=== PATIENT | male | born 1980 | race Caucasian/White ===

== ENCOUNTER 2023-05-03 12:35 | Inpatient (IN) ==
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
[2023-05-03] MEDS ORDERED: MoRPHine SULFATE 4 MG/ML 1 ML CARP\\VIAL IV PRN (13:49)
[2023-05-03 14:39] LABS: Basophils # (auto) 0.04 K/uL (0-0.2); Basophils % (auto) 0.3 %; Eosinophils # (auto) 0.19 K/uL (0-0.50); Eosinophils % (auto) 1.3 %; Hematocrit (blood only) 41.1 % (42.0-52.0); Hemoglobin 13.9 g/dl (14.0-18.0); Immature Granulocytes # (auto) 0.07 K/uL (0.01-0.20); Immature Granulocytes % (auto) 0.5 %; Lymphocytes # (auto) 1.56 K/uL (1.2-3.4); Lymphocytes % (auto) 10.6 %; Mean Corpuscular Hemoglobin 30.6 pg (25.0-34.0); Mean Corpuscular Hgb Conc 33.8 g/dL (32.0-36.0); Mean Corpuscular Volume 90.5 fL (80.0-100.0); Mean Platelet Volume 9.7 fL (9.4-12.4); Monocytes # (auto) 1.35 K/uL (0.11-0.59); Monocytes % (auto) 9.2 %; Neutrophils # (auto) 11.52 K/uL (1.40-6.50); Neutrophils % (auto) 78.1 %; Platelet Count 249 K/uL (130-400); RDW Coefficient of Variation 13.1 % (11.5-14.5); RDW Standard Deviation 43.1 fL (36.4-46.3); Red Blood Count 4.54 M/uL (4.70-6.10); White Blood Count 14.73 K/ul (4.8-10.8)
[2023-05-03] MEDS ORDERED: ROPIVACAINE 0.5% 5 MG/ML 30 ML VIAL ONE (14:51)
[2023-05-03] MEDS ORDERED: EPINEPHrine INJ 1 MG/ML AMP ONE (14:52)
[2023-05-03] MEDS ORDERED: DEXAMETHASONE SOD INJ 4 MG/ML VIAL ONE (14:53)
[2023-05-03] MEDS ORDERED: BUPIVACAINE 0.5 % 5 MG/1 ML MPF 30ML VIAL ONE ×2 (14:55→16:40)
[2023-05-03 14:56] LABS: Albumin Globulin Ratio 1.1 (0.9-2); Albumin Level 3.8 gm/dl (3.4-5.0); BUN Creatinine Ratio 9.5 (10-20); Bilirubin,Total 0.7 mg/dl (0.2-1.0); C Reactive Protein 27.23 mg/dl (0-0.5); Calcium 8.6 mg/dl (8.6-10.3); Creatinine Clr Calc Pharmacy 80.5 ml/min; Est GFR (African American) 80.4 ml/min; Est GFR (Non-African American) 69.4 ml/min; Globulin 3.5 gm/dl (2.5-4.0); Potassium 3.5 mmol/L (3.5-5.1); Total Protein 7.3 gm/dl (6.0-8.3)
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
[2023-05-03] MEDS ORDERED: PROPOFOL IV EMULSION 10 MG/ML 20 ML VIAL IV ONE (15:09)
[2023-05-03] MEDS ORDERED: fentaNYL citrate PF 100 MCG/2 ML VIAL ONE (15:10)
[2023-05-03] MEDS ORDERED: MIDAZOLAM HCL 1 MG/ML 2ML VIAL ONE (15:10)
[2023-05-03] MEDS ORDERED: PIPERACILLIN/TAZOBACTAM 4.5 GM in DEXTROSE 5% 100 ML IV ONE (16:51)
[2023-05-03] MEDS ORDERED: PHENYLEPHRINE HCL 10 MG/ML VIAL ONE (17:12)
[2023-05-03] MEDS ORDERED: ONDANSETRON INJ 2 MG/ML 2 ML VIAL ONE (17:22)
[2023-05-03] MEDS ORDERED: LIDOCAINE 2% 2 ML VIAL/AMP(20MG/ML) INFIL ONE (17:23)
[2023-05-03] MEDS ORDERED: fentaNYL citrate PF 100 MCG/2 ML VIAL IV PRN (17:52)
[2023-05-03] MEDS ORDERED: FLUMAZENIL 0.1 MG/1 ML 10 ML VIAL IV PRN (17:52)
[2023-05-03] MEDS ORDERED: PROMETHAZINE HCL 12.5 MG in SODIUM CHLORIDE 0.9% 50 ML IV PRN (17:52)
[2023-05-03] MEDS ORDERED: ePHEDrine sulfate 50 MG/ML AMP IV PRN (17:52)
[2023-05-03] MEDS ORDERED: ATROPINE SULFATE 0.1 MG/ML 10ML SYR IV PRN (17:52)
[2023-05-03] MEDS ORDERED: NALOXONE HCL 0.4 MG/1 ML VIAL/CARP IV PRN ×2 (17:52→18:36)
[2023-05-03] MEDS ORDERED: HYDROmorphone INJ 1 MG/ML SYRINGE IV PRN (17:52)
[2023-05-03] MEDS ORDERED: ONDANSETRON INJ 2 MG/ML 2 ML VIAL IV PRN ×2 (17:52→18:36)
--- NOTE | 2023-05-03 17:52 | Post Operative Brief Note ---
Immediate Post Op Note v1 Date of Surgery May 03, 2023 Pre & Post Diagnosis Operation Date: 05/03/23 12:35 Pre-Op Diagnosis: SEPTIC FLEXER TENOSYNOVITIS, left middle finger Post-Op Diagnosis: SEPTIC FLEXER TENOSYNOVITIS, left middle finger I identified the patient and participated in the time-out.: Yes Procedure Operation Date: 05/03/23 12:35 Actual Procedures p Left Middle Finger Irrigation and Debridement Septic Flexor Tenosynovitis(Left) - Uziel De Los Santos MD Surgeon Uziel De Los Santos MD Transportation Job Titles Sara Hernández PA-C Estimated Blood Loss 3 Findings Consistent with Post-Op Diagnosis Serous fluid consistent with infection in the flexor tendon sheath. Desquamation of the skin seen dorsally. No evidence of focal abscess
--- NOTE | 2023-05-03 18:28 | Anesthesiology Progress Note ---
Date of Service May 03, 2023 Anesthesia Post Procedure Vital Signs Vital Signs: Temp Pulse Pulse Resp BP BP Pulse Ox 05/03/23 18:20 104 H 22 123/73 96 05/03/23 18:10 103 H 21 108/73 95 05/03/23 18:03 36.1 C L 104 H 20 115/77 100 05/03/23 15:06 37.8 C H 117 H 20 118/77 97 05/03/23 13:47 05/03/23 13:20 37.1 C 117 H 16 120/79 97 05/03/23 13:18 37.1 C 117 H 16 120/79 98 Pulse Ox O2 Del Method O2 Del Method O2 Flow Rate 05/03/23 18:20 Room Air 05/03/23 18:10 Room Air 05/03/23 18:03 Oxymask 6 05/03/23 15:06 Room Air 05/03/23 13:47 97 Room Air 05/03/23 13:20 Room Air 05/03/23 13:18 Room Air Pain Intensity Left Hand: Pain Intensity: 8 Transfer of Care Handoff Completed per policy Notes Mental Status: alert / awake / arousable Patient Amnestic to Procedure: Yes Nausea / Vomiting: adequately controlled Pain: adequately controlled Airway Patency, RR, SpO2: stable & adequate BP & HR: stable & adequate Hydration State: stable & adequate Anesthetic Complications: no major complications apparent
[2023-05-03] MEDS ORDERED: diphenhydrAMINE Capsule 25 MG CAP PO PRN (18:36)
[2023-05-03] MEDS ORDERED: VANCOMYCIN CONSULT ACTIVE PRN (18:36)
[2023-05-03] MEDS ORDERED: bisacodyL 10 MG SUPP PR PRN (18:36)
[2023-05-03] MEDS ORDERED: METOCLOPRAMIDE HCL INJ 5 MG/ML 2 ML VIAL IV PRN (18:36)
[2023-05-03] MEDS ORDERED: MAGNESIUM HYDROXIDE SUSP 30 ML UDC PO PRN (18:36)
[2023-05-03] MEDS ORDERED: VANCOMYCIN CONSULT ACTIVE ONE (18:41)
[2023-05-03] MEDS: SODIUM CHLORIDE 0.9% 1000ML 1,000 ML IV SCH (18:47)
--- NOTE | 2023-05-03 18:47 | Operative Report ---
Post Operative Report Pre & Post Diagnosis Operation Date: 05/03/23 12:35 Pre-Op Diagnosis: SEPTIC FLEXER TENOSYNOVITIS, left middle finger Post-Op Diagnosis: SEPTIC FLEXER TENOSYNOVITIS, left middle finger I identified the patient and participated in the time-out.: Yes Procedure Operation Date: 05/03/23 12:35 Actual Procedures p Left Middle Finger Irrigation and Debridement Septic Flexor Tenosynovitis(Left) - Uziel De Los Santos MD Surgeon Uziel De Los Santos MD Aircraft Maintenance Technician Sara Hernández PA-C Estimated Blood Loss 3 Findings Consistent with Post-Op Diagnosis Serous fluid in the flexor tendon sheath consistent with septic flexor tenosynovitis desquamation of the skin seen dorsally. Specimens Cultures Drains None Indications This is a gentleman with progressive pain and swelling of the finger after he stuck himself with a sharp object in the tip of the finger approximately 5 days ago he presents with worsening of condition and ascending cellulitis. He presents for admission as well as irrigation and debridement. I saw the patient and family in the preoperative holding area we discussed risk benefits reasonable outcomes and expectations including but not limited to stiffness loss of motion tendon nerve injury, need for amputation, sepsis etc. The agreeable and wished to proceed he was given vancomycin and Zosyn at approximately 2:30 AM the night previous at the outside institution where he was transferred from. I discussed with the patient and family holding antibiotics until definitive culture. They felt fairly adamant that he should be continued on antibiotics. I did order Zosyn in the preoperative holding area as well as a vancomycin. Patient was also given a prescription for oral antibiotics as an outpatient from the ER last night. Description of Procedure Description operation patient's left hand is prepped and draped in usual sterile fashion. Examination did show some a sending cellulitis up the arm. I do not detect any palpable axillary or epitrochlear lymphadenopathy prior to prepping and draping. Once he was asleep as able to obtain a more thorough examination. He exhibited moderate swelling in the flexor tendon sheath with fusiform swelling of the middle finger. He had desquamation of the skin seen dorsally which I performed debridement up and popped a few blisters of the dorsal aspect of the skin. I elected to try and leave as much of the skin intact as possible. I inspected the PIP and DIP joints and MP joints and wrist that do not think any evidence of effusion or obvious evidence of septic joint. Made a longitudinal incision over the A1 mary ann of the middle finger. Dissection was carried down through the skin and subcutaneous tissues. Digital nerves were retracted and I incised the A1 mary ann. Moderate mount of serous fluid was encountered in the flexor tendon sheath consistent with septic flexor tenosynovitis. I took cultures of this as well as more superficial cultures of the dorsal aspect of the finger where there were blisters. Performed a second incision, mid lateral over the ulnar side of the finger and dissected down to the flexor tendon sheath bluntly over the flexor tendon sheath. I then performed through and through irrigation of the proximal incision to the distal incision with a 14-gauge Angiocath. I did this until clear fluid was able to be drawn through. This did show significant treatments and infection. I irrigated the A1 mary ann incision significantly. Inspect the finger I do not I did identify any other evidence of abscess. Patient did have moderate swelling of the finger diffusely. Tourniquet was let down hemostasis was obtained with bipolar electrocautery A1 mary ann incision was closed with 4-0 nylon in a running fashion a small amount of packing was applied. Mid lateral incision was closed with a single 4-0 nylon stitch patient was placed in a soft dressing and was sent to the PACU in stable condition. I discussed the results in great detail with the patient's friend, Luda. I attest to the content of the Intraoperative Record and any orders documented therein. Any exceptions are noted below.
[2023-05-03] MEDS ORDERED: VANCOMYCIN HCL 2,000 MG in SODIUM CHLORIDE 0.9% 500 ML IV STA (19:02)
--- NOTE | 2023-05-03 19:45 | Pharmacy Report ---
Pharmacy PK ABX Note - Date of Service May 03, 2023 - Assessment and Plan Assessment 42 year old M receiving IV Vancomycin and Zosyn for treatment of septic flexor tenosynovitis. Day # 1 of antimicrobial therapy. Plan Vancomycin * Loading dose: 2000 mg (~23mg/kg) IV x 1 * Maintenance dose: 1000 mg (~12mg/kg) IV every 12 hours * Regimen is predicted to achieve target AUC/STARR of 400-600 mg/L.hr * Trough level ordered for: 05/05/23 @ 0730 Pharmacy will continue to follow and will adjust dose/frequency as necessary. Thank you. Pharmacy has transitioned to AUC monitoring for vancomycin. AUC/STARR is the preferred PK/PD target and is associated with decreased risk of nephrotoxicity compared to traditional trough targets.
[2023-05-03] MEDS: DOCUSATE SODIUM 100 MG CAP PO SCH (20:29)
[2023-05-03] MEDS ORDERED: SENNA 8.6 MG TAB PO SCH (21:00)
[2023-05-03] MEDS: ACETAMINOPHEN 500 MG TAB PO SCH (21:29)
[2023-05-03] MEDS: oxyCODONE HCL IR 5 MG TAB (IMMEDIATE RELEASE) PO PRN (21:29)
[2023-05-03] MEDS: HYDROmorphone INJ 1 MG/ML SYRINGE IV PRN (22:37)
[2023-05-04] MEDS: PIPERACILLIN/TAZOBACTAM 4.5 GM CI (over 4 hours) IV SCH ×2 (01:37→08:11)
[2023-05-04] MEDS: ACETAMINOPHEN 500 MG TAB PO SCH ×2 (05:53→13:36)
[2023-05-04 06:06] LABS: Hematocrit (blood only) 35.4 % (42.0-52.0); Hemoglobin 11.8 g/dl (14.0-18.0); Mean Corpuscular Hemoglobin 29.9 pg (25.0-34.0); Mean Corpuscular Hgb Conc 33.3 g/dL (32.0-36.0); Mean Corpuscular Volume 89.8 fL (80.0-100.0); Mean Platelet Volume 9.9 fL (9.4-12.4); Platelet Count 205 K/uL (130-400); RDW Coefficient of Variation 12.6 % (11.5-14.5); RDW Standard Deviation 41.6 fL (36.4-46.3); Red Blood Count 3.94 M/uL (4.70-6.10); White Blood Count 8.19 K/ul (4.8-10.8)
[2023-05-04] MEDS: SODIUM CHLORIDE 0.9% 1000ML 1,000 ML IV SCH (06:06)
--- NOTE | 2023-05-04 06:25 | Orthopedic Progress Note ---
Date of Service May 04, 2023 Assessment & Plan (1) Suppurative tenosynovitis of flexor tendon of left hand: Plan: POD #1 s/p Left Middle Finger Irrigation and Debridement Septic Flexor Tenosynovitis will plan on dressing change tomorrow with removal of packing, continue with dressing until then. cont with IV Abx, currently on Vanco and Zosyn, awaiting cultures gram stain and C&S pending, Dr De Los Santos has recommended IM consult as well for medical management and assistance with Abx recommendations Ice/elevate for swelling ROM of the hand as tolerated Admission and Anticipated Discharge Date Admission Date: May 03, 2023 Subjective POD #1 s/p Left Middle Finger Irrigation and Debridement Septic Flexor Tenosynovitis Review of Systems Constitutional: no fever and no chills Respiratory: no cough and no dyspnea Cardiovascular: no chest pain, no dyspnea and no orthopnea Gastrointestinal: no abdominal pain, no nausea and no vomiting Physical Exam Physical Exam: Vital Signs Temp Pulse Pulse Resp BP BP Pulse Ox 05/04/23 05:59 36.8 C 78 18 108/63 99 05/04/23 05:11 36.7 C 05/04/23 02:58 36.3 C L 76 16 99/62 L 95 05/03/23 21:39 36.8 C 107 H 18 117/73 98 05/03/23 19:45 36.8 C 89 18 112/73 98 05/03/23 18:38 36.4 C L 110 H 16 119/75 96 05/03/23 18:30 36.9 C 100 H 20 118/72 97 05/03/23 18:20 104 H 22 123/73 96 05/03/23 18:10 103 H 21 108/73 95 05/03/23 18:03 36.1 C L 104 H 20 115/77 100 05/03/23 15:06 37.8 C H 117 H 20 118/77 97 05/03/23 13:47 05/03/23 13:20 37.1 C 117 H 16 120/79 97 05/03/23 13:18 37.1 C 117 H 16 120/79 98 Pulse Ox O2 Del Method O2 Del Method O2 Flow Rate 05/04/23 05:59 Room Air 05/04/23 05:11 05/04/23 02:58 Room Air 05/03/23 21:39 Room Air 05/03/23 19:45 Room Air 05/03/23 18:38 Room Air 05/03/23 18:30 Room Air 05/03/23 18:20 Room Air 05/03/23 18:10 Room Air 05/03/23 18:03 Oxymask 6 05/03/23 15:06 Room Air 05/03/23 13:47 97 Room Air 05/03/23 13:20 Room Air 05/03/23 13:18 Room Air Intake and Output 05/03/23 05/03/23 05/04/23 14:59 22:59 06:59 Intake Total 1520 / 2680 1160 / 2680 Output Total 553 / 1153 600 / 1153 Balance 967 / 1527 560 / 1527 Intake: IV 620 / 1780 1160 / 1780 Piperacillin/T azobactam 4.5 gm 120 / 240 120 / 240 In Dextrose 5% 100 ml @ 30 mls/ hr IV Q8H FAIZA Rx#:[id number] Sodium Chlorid e 0.9% 1000ML 1, 280 / 1000 720 / 1000 000 ml @ 100 m ls/hr IV .Q10H FAIZA Rx#:[id number] Vancomycin HCl 2,000 mg In 220 / 540 320 / 540 Sodium Chlorid e 0.9% 500 ml @ 200 mls/hr IV NOW STA Rx#: [id number] IV Perioperative 900 / 900 Output: Urine 550 / 1150 600 / 1150 Estimated Blood Loss 3 / 3 Other: Weight 86.183 kg 86.183 kg Weight Measureme nt Method Standing Scale Patient Weight 05/04/23 06:59 Weight 86.183 kg Constitutional: WD/WN, vitals as above Musculoskeletal: Left hand: dressing clean and dry, no drainage noted. he can wiggle the tips of his fingers, sensation intact to light touch through the dressing. full painless ROM of the the thumb. Results & Data Vital Signs (Past 12 Hours) Vital Signs Temp Pulse Pulse Resp BP Pulse Ox O2 Del Method 05/04/23 05:59 36.8 C 78 18 108/63 99 Room Air 05/04/23 05:11 36.7 C 05/04/23 02:58 36.3 C L 76 16 99/62 L 95 Room Air 05/03/23 21:39 36.8 C 107 H 18 117/73 98 Room Air 05/03/23 19:45 36.8 C 89 18 112/73 98 Room Air 05/03/23 18:38 36.4 C L 110 H 16 119/75 96 Room Air 05/03/23 18:30 36.9 C 100 H 20 118/72 97 Room Air Laboratory Results 05/03/23 17:27 Gram Stain - Pending Finger,Left Middle Aerobic and Anaerobic Culture - Pending 05/03/23 17:27 Gram Stain - Pending Finger,Left Middle Aerobic and Anaerobic Culture - Pending
[2023-05-04 06:33] LABS: Calcium 8.2 mg/dl (8.6-10.3); Creatinine Clr Calc Pharmacy 93.1 ml/min; Est GFR (African American) 95.8 ml/min; Est GFR (Non-African American) 82.7 ml/min; Potassium 4.6 mmol/L (3.5-5.1)
[2023-05-04] MEDS: DOCUSATE SODIUM 100 MG CAP PO SCH (07:32)
[2023-05-04] MEDS ORDERED: VANCOMYCIN HCL 1,000 MG in SODIUM CHLORIDE 0.9% 250 ML IV SCH (08:00)
[2023-05-04] MEDS ORDERED: NICOTINE 14 MG/24 HR PATCH TD SCH (09:00)
[2023-05-04] MEDS ORDERED: MULTIVITAMIN TAB PO SCH (09:00)
[2023-05-04] MEDS: oxyCODONE HCL IR 5 MG TAB (IMMEDIATE RELEASE) PO PRN ×2 (09:53→13:37)
[2023-05-04] MEDS: HYDROmorphone INJ 1 MG/ML SYRINGE IV PRN (10:55)
--- NOTE | 2023-05-04 11:10 | Orthopedic Progress Note ---
Date of Service May 04, 2023 Assessment & Plan (1) Suppurative tenosynovitis of flexor tendon of left hand: Plan: Overall he exhibits significant improvement compared to yesterday. Antibiotics appear to be very effective in decreasing the a sending cellulitis. At this point in time I do not anticipate any further surgical treatment. We will continue to follow him clinically. We will await culture results. In the meantime we will continue Zosyn and vancomycin, unless hospitalist feels otherwise. Appreciate hospitalist input Admission and Anticipated Discharge Date Admission Date: May 03, 2023 Subjective Doing much better today. Overall has less constitutional symptoms. Physical Exam Musculoskeletal: Significant decrease in streaking erythema up his left arm. His his finger is warm and well-perfused. He has minimal drainage from the finger. He is able to flex and extend the digit with mild discomfort Results & Data Vital Signs (Past 12 Hours) Vital Signs Temp Pulse Resp BP Pulse Ox O2 Del Method 05/04/23 05:59 36.8 C 78 18 108/63 99 Room Air 05/04/23 05:11 36.7 C 05/04/23 02:58 36.3 C L 76 16 99/62 L 95 Room Air
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
[2023-05-04] MEDS ORDERED: DIPHTHERIA/TETANUS/PERTUSSIS Vaccine (Tdap, Age 7+yrs) 0.5mL SYR/VL IM ONE (17:30)
[2023-05-05] MEDS ORDERED: VANCOMYCIN LEVEL ONE (07:30)
[2023-05-06] MEDS ORDERED: MAGNESIUM HYDROXIDE SUSP 30 ML UDC PO PRN (07:40)
[2023-05-06] MEDS ORDERED: traMADol HCL 50 MG TABLET PO PRN (07:40)
[2023-05-06] MEDS ORDERED: METOCLOPRAMIDE HCL INJ 5 MG/ML 2 ML VIAL IV PRN (07:40)
[2023-05-06] MEDS ORDERED: ONDANSETRON INJ 2 MG/ML 2 ML VIAL IV PRN (07:40)
[2023-05-06] MEDS ORDERED: NALOXONE HCL 0.4 MG/1 ML VIAL/CARP IV PRN (07:40)
[2023-05-06] MEDS ORDERED: bisacodyL 10 MG SUPP PR PRN (07:40)
[2023-05-06] MEDS ORDERED: VANCOMYCIN CONSULT ACTIVE PRN (07:45)
[2023-05-06] MEDS ORDERED: SODIUM CHLORIDE 0.9% 1000ML 1,000 ML IV SCH (07:45)
[2023-05-06] MEDS ORDERED: PIPERACILLIN/TAZOBACTAM 4.5 GM in DEXTROSE 5% 100 ML IV SCH (08:00)
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
[2023-05-06] MEDS ORDERED: DOCUSATE SODIUM 100 MG CAP PO SCH (09:00)
[2023-05-06] MEDS ORDERED: MULTIVITAMIN TAB PO SCH (09:00)
[2023-05-06] MEDS ORDERED: VANCOMYCIN HCL 1,250 MG in SODIUM CHLORIDE 0.9% 500 ML IV SCH (17:45)
[2023-05-06] MEDS ORDERED: SENNA 8.6 MG TAB PO SCH (21:00)
== END 2023-05-04 16:00 | disposition left against medical advice (07) | DRG 514 ==
LOC: 3E 12:59

== ENCOUNTER 2023-05-06 00:39 | Observation (INO) ==
[2023-05-06] MEDS ORDERED: SODIUM CHLORIDE 0.9% 1000ML 1,000 ML IV ONE (01:16)
[2023-05-06] MEDS ORDERED: VANCOMYCIN CONSULT ACTIVE PRN ×2 (01:20→08:31)
[2023-05-06] MEDS ORDERED: PIPERACILLIN/TAZOBACTAM 4.5 GM/120 ML BAG IV ONE (01:20)
[2023-05-06] MEDS ORDERED: VANCOMYCIN HCL 2,250 MG in SODIUM CHLORIDE 0.9% 500 ML IV ONE (01:20)
[2023-05-06 01:34] LABS: Appearance Urine Clear (Clear); Bilirubin Urine Negative (Negative); Blood Urine Negative (Negative); Color Urine Yellow; Glucose Urine UA Negative (Negative); Ketones Urine Negative (Negative); Leukocyte Esterase Urine Negative (Negative); Nitrite Urine Negative (Negative); Protein Urine Negative (Negative); Urobilinogen Urine Negative (Negative)
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
[2023-05-06] MEDS ORDERED: SODIUM CHLORIDE 0.9% 1000ML 2,000 ML IV ONE (02:06)
[2023-05-06 02:09] LABS: Basophils # (auto) 0.03 K/uL (0-0.2); Basophils % (auto) 0.3 %; Eosinophils # (auto) 0.18 K/uL (0-0.50); Eosinophils % (auto) 1.9 %; Hematocrit (blood only) 36.3 % (42.0-52.0); Hemoglobin 12.3 g/dl (14.0-18.0); Immature Granulocytes # (auto) 0.05 K/uL (0.01-0.20); Immature Granulocytes % (auto) 0.5 %; Lymphocytes # (auto) 2.14 K/uL (1.2-3.4); Lymphocytes % (auto) 22.9 %; Mean Corpuscular Hemoglobin 30.5 pg (25.0-34.0); Mean Corpuscular Hgb Conc 33.9 g/dL (32.0-36.0); Mean Corpuscular Volume 90.1 fL (80.0-100.0); Mean Platelet Volume 9.7 fL (9.4-12.4); Monocytes % (auto) 5.4 %; Neutrophils # (auto) 6.44 K/uL (1.40-6.50); Platelet Count 295 K/uL (130-400); RDW Coefficient of Variation 13.2 % (11.5-14.5); RDW Standard Deviation 43.8 fL (36.4-46.3); Red Blood Count 4.03 M/uL (4.70-6.10); White Blood Count 9.34 K/ul (4.8-10.8)
[2023-05-06] MEDS ORDERED: ONDANSETRON INJ 2 MG/ML 2 ML VIAL IV STA (02:31)
[2023-05-06] MEDS ORDERED: HYDROmorphone INJ 0.5 MG/0.5 ML SYR IV STA ×2 (02:31→04:54)
[2023-05-06 02:34] LABS: Albumin Level 3.4 gm/dl (3.4-5.0); BUN Creatinine Ratio 9.8 (10-20); Bilirubin,Total 0.2 mg/dl (0.2-1.0); Calcium 8.6 mg/dl (8.6-10.3); Creatinine Clr Calc Pharmacy 99.5 ml/min; Est GFR (African American) 103.9 ml/min; Est GFR (Non-African American) 89.6 ml/min; Magnesium 1.7 mg/dl (1.7-2.4); Total Protein 6.6 gm/dl (6.0-8.3)
[2023-05-06] MEDS ORDERED: OPTIRAY 350 500ml IV ONE (03:27)
--- NOTE | 2023-05-06 04:25 | CT Scan Report ---
Exam(s): CT EXTREMITY LEFT UPPER With Contrast IV Amt: 93 ml optiray 350 EXAM: CT Left Upper Extremity With Intravenous Contrast CLINICAL HISTORY: Reason for exam: eval for gas/abscess. TECHNIQUE: Axial computed tomography images of the left upper extremity with intravenous contrast. Automated exposure control was utilized for the study. A dose lowering technique was utilized adhering to the principles of ALARA. CONTRAST: Patient received 93 ml optiray 350 of IV contrast COMPARISON: No relevant prior studies available. FINDINGS: Bones/joints: The osseous structures appear intact and normally aligned. No acute fracture or dislocation is seen. No elbow joint effusion is identified. Soft tissues: Mild subcutaneous edema involving the extensor surface of the proximal to mid forearm consistent with cellulitis or contusion. No subcutaneous emphysema, abscess, or foreign body is identified. IMPRESSION: Mild subcutaneous edema involving the extensor surface of the proximal to mid forearm consistent with cellulitis or contusion. No subcutaneous emphysema, abscess, or foreign body is identified. Electronically signed by: Timo Abebe MD 05/06/23 04:23 AM
--- NOTE | 2023-05-06 06:59 | XRay Report ---
XR chest 1V portable CLINICAL HISTORY: Sepsis TECHNIQUE: Single frontal radiograph of the chest was obtained. Comparison: None available at the time of this dictation. FINDINGS: No lines and tubes are seen. The cardiomediastinal silhouette is normal. The lungs are clear. No evid ence of pleural effusion or pneumothorax. IMPRESSION: No acute chest disease. ACT 112: Negative or not required by law. Electronically signed by: Rommel Ferro M.D. 05/06/2023 6:58 AM
[2023-05-06] MEDS ORDERED: MAGNESIUM HYDROXIDE SUSP 30 ML UDC PO PRN (08:26)
[2023-05-06] MEDS ORDERED: MoRPHine SULFATE 4 MG/ML 1 ML CARP\\VIAL IV PRN (08:27)
[2023-05-06] MEDS ORDERED: bisacodyL 10 MG SUPP PR PRN (08:28)
[2023-05-06] MEDS ORDERED: METOCLOPRAMIDE HCL INJ 5 MG/ML 2 ML VIAL IV PRN (08:29)
[2023-05-06] MEDS ORDERED: ONDANSETRON INJ 2 MG/ML 2 ML VIAL IV PRN (08:29)
[2023-05-06] MEDS ORDERED: NALOXONE HCL 0.4 MG/1 ML VIAL/CARP IV PRN (08:30)
[2023-05-06] MEDS ORDERED: PIPERACILLIN/TAZOBACTAM 4.5 GM in DEXTROSE 5% 100 ML IV SCH (09:00)
[2023-05-06] MEDS: SODIUM CHLORIDE 0.9% 1000ML 1,000 ML IV SCH ×2 (09:14→18:01)
[2023-05-06] MEDS: DOCUSATE SODIUM 100 MG CAP PO SCH ×3 (09:17→19:45)
[2023-05-06] MEDS: MULTIVITAMIN TAB PO SCH (09:19)
[2023-05-06] MEDS ORDERED: NICOTINE 21 MG/24 HR TDSY TD ONE (09:22)
[2023-05-06] MEDS: traMADol HCL 50 MG TABLET PO PRN ×2 (09:25→16:05)
--- NOTE | 2023-05-06 10:29 | Pharmacy Report ---
Pharmacy PK ABX Note - Date of Service May 06, 2023 - Assessment and Plan Assessment 42 year old M receiving Vancomycin and Zosyn for treatment of tenosynovitis. * Patient was originally admitted on started on abx on 05/03/23. Orthopedics was consulted and took patient to OR for an irrigation and debridement on the same day secondary to left middle finger septic flexor tenosynovitis. On the afternoon of 05/04/23, patient eloped and left AMA. He returned on the morning of 05/06/23 secondary to pain in left hand/forearm. Did admit to ED provider that he used meth yesterday. * Afebrile but tachycardic which may be due to meth use. No leukocytosis. Lactate was 2.2 but down to 1.0 after fluids. Procalcitonin negative at 0.06. Renal fxn stable. * Patient received a 2000 mg load of Vancomycin on 05/03/23 at 2030. Then received a 1000 mg dose on 05/04/23 at 0810. AUC/STARR dosing software predicted that vanc level was ~ 4 mcg/mL when he received another loading dose of 2250 mg (25 mg/kg) in the ED this AM. Peak level expected to be near 30 mcg/mL. Will start maintenance dosing this afternoon and check level tomorrow at noon to ensure he is not supratherapeutic. * Left middle finger cultures from the OR are growing MRSA with Vanc STARR = 2. Recommended discontinuation of Zosyn to Orthopedics who agreed. Plan Vancomycin * Loading dose: 2250 mg IV x 1 * Maintenance dose: 1250 mg IV every 12 hours * Regimen is predicted to achieve target AUC/STARR of 400-600 mg/L.hr * Random level ordered for: 05/07/23 @ 1200 Pharmacy will continue to follow and will adjust dose/frequency as necessary. Thank you. Pharmacy has transitioned to AUC monitoring for vancomycin. AUC/STARR is the preferred PK/PD target and is associated with decreased risk of nephrotoxicity compared to traditional trough targets.
[2023-05-06] MEDS: VANCOMYCIN HCL 1,250 MG in SODIUM CHLORIDE 0.9% 250 ML IV SCH (14:16)
[2023-05-06] MEDS: oxyCODONE HCL IR 5 MG TAB (IMMEDIATE RELEASE) PO PRN ×2 (14:24→19:45)
--- NOTE | 2023-05-06 17:44 | Orthopedic Progress Note ---
Date of Service May 06, 2023 Assessment & Plan (1) Suppurative tenosynovitis of flexor tendon of left hand: Plan: At this point in time recommendation is to continue intravenous antibiotics. Culture showed MRSA. Will defer to hospitalist definitive antibiotic choice. Currently on vancomycin, and had Zosyn in the ER. He does have a prescription for Bactrim as an outpatient as well which she is taken some of. No surgical indications at this point in time, my hope is antibiotics will resolve his infection. Appreciate hospitalist input. Admission and Anticipated Discharge Date Admission Date: May 06, 2023 Subjective I saw Sergio he notes increasing pain after being off his antibiotics for 24 hours after he signed out AMA. Review of Systems Musculoskeletal: Examination shows small amount of purulent drainage from the small incision. Streaking erythema is resolved. Compartments are soft. Finger significantly swollen with desquamation of the skin. Compartments are soft Results & Data Vital Signs (Past 12 Hours) Vital Signs Temp Pulse Pulse Resp BP BP Pulse Ox 05/06/23 16:37 36.6 C 05/06/23 15:45 98 H 20 110/86 97 05/06/23 10:00 100 H 19 05/06/23 10:00 140/96 05/06/23 09:45 107 H 25 H 05/06/23 09:30 18 05/06/23 09:30 133/95 05/06/23 09:30 133/95 05/06/23 09:15 108 H 19 05/06/23 09:00 109 H 23 95 05/06/23 09:00 147/90 H 05/06/23 08:45 119 H 19 96 05/06/23 08:30 109 H 8 L 97 05/06/23 08:30 146/91 H 05/06/23 08:30 146/91 H 05/06/23 08:15 112 H 17 97 05/06/23 08:14 36.5 C 116 H 18 133/94 97 05/06/23 08:00 117 H 18 96 05/06/23 08:00 133/94 05/06/23 07:45 118 H 21 98 05/06/23 07:30 110 H 15 97 05/06/23 07:30 133/89 05/06/23 07:15 113 H 21 97 05/06/23 07:01 112 H 24 92 05/06/23 07:01 145/85 H 05/06/23 07:00 108 H 27 H 84 L 05/06/23 06:47 159/99 H 05/06/23 06:47 117 H 24 05/06/23 06:45 112 H 30 H 05/06/23 06:30 110 H 19 05/06/23 06:47 112 H 16 159/99 H 99 05/06/23 06:21 110 H O2 Del Method 05/06/23 16:37 Room Air 05/06/23 15:45 Room Air 05/06/23 10:00 05/06/23 10:00 05/06/23 09:45 05/06/23 09:30 05/06/23 09:30 05/06/23 09:30 05/06/23 09:15 05/06/23 09:00 05/06/23 09:00 05/06/23 08:45 05/06/23 08:30 05/06/23 08:30 05/06/23 08:30 05/06/23 08:15 05/06/23 08:14 Room Air 05/06/23 08:00 05/06/23 08:00 05/06/23 07:45 05/06/23 07:30 05/06/23 07:30 05/06/23 07:15 05/06/23 07:01 05/06/23 07:01 05/06/23 07:00 05/06/23 06:47 05/06/23 06:47 05/06/23 06:45 05/06/23 06:30 05/06/23 06:47 Room Air 05/06/23 06:21
--- NOTE | 2023-05-06 19:30 | Electrocardiogram Report ---
Test Reason : Blood Pressure : / mmHG Vent. Rate : 123 BPM Atrial Rate : 123 BPM P-R Int : 134 ms QRS Dur : 090 ms QT Int : 320 ms P-R-T Axes : 050 002 039 degrees QTc Int : 458 ms Sinus tachycardia Possible Left atrial enlargement Abnormal ECG No previous ECGs available Confirmed by Uziel Durham ([id number]) on 05/06/2023 7:30:34 PM Referred By: REFERRED SELF Confirmed By:Ori Durham
[2023-05-06] MEDS: SENNA 8.6 MG TAB PO SCH (19:46)
[2023-05-07] MEDS: VANCOMYCIN HCL 1,250 MG in SODIUM CHLORIDE 0.9% 250 ML IV SCH ×2 (02:07→14:58)
[2023-05-07] MEDS: oxyCODONE HCL IR 5 MG TAB (IMMEDIATE RELEASE) PO PRN (02:14)
[2023-05-07] MEDS: SODIUM CHLORIDE 0.9% 1000ML 1,000 ML IV SCH (03:34)
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
[2023-05-07] MEDS ORDERED: SULFAMETHOXAZOLE/TRIMETHOPRIM DS 800/160MG TAB PO SCH (09:00)
[2023-05-07] MEDS ORDERED: VANCOMYCIN CONSULT ACTIVE PRN (09:17)
[2023-05-07] MEDS: DOCUSATE SODIUM 100 MG CAP PO SCH ×2 (09:23→20:16)
[2023-05-07] MEDS: MULTIVITAMIN TAB PO SCH (09:24)
--- NOTE | 2023-05-07 12:20 | Orthopedic Progress Note ---
Date of Service May 07, 2023 Assessment & Plan (1) Suppurative tenosynovitis of flexor tendon of left hand: Plan: at this point recommend continuing with the IV Vanco, Cultures showed MRSA. Will defer to hospitalist definitive antibiotic choice. Currently on va ncomycin, discussion of switching to PO Bactrim at the time of discharge. cont to Ice/elevate daily dressing changes discussed with Dr De Los Santos, No surgical indications at this point in time, my hope is antibiotics will resolve his infection. Appreciate hospitalist input. Admission and Anticipated Discharge Date Admission Date: May 06, 2023 Subjective POD #4 s/p Left Middle Finger Irrigation and Debridement Septic Flexor Tenosynovitis Review of Systems Constitutional: no fever and no chills Respiratory: no cough and no dyspnea Cardiovascular: no chest pain, no dyspnea and no orthopnea Gastrointestinal: no abdominal pain, no nausea and no vomiting Physical Exam Physical Exam: Vital Signs Temp Pulse Resp BP Pulse Ox O2 Del Method 05/07/23 06:44 36.5 C 68 18 150/97 H 100 Room Air 05/06/23 20:00 Room Air 05/06/23 22:24 36.5 C 78 15 135/86 100 Room Air 05/06/23 16:37 36.6 C 85 16 133/88 100 Room Air 05/06/23 15:45 98 H 20 110/86 97 Room Air Intake and Output 05/06/23 05/07/23 05/07/23 22:59 06:59 14:59 Intake Total 1153.333 / 2503.33 3 1230 / 2503.333 581 / 581 Output Total 400 / 3300 900 / 3300 Balance 753.333 / -796.667 330 / -796.667 581 / 581 Intake: IV 1153.333 / 2503.33 3 1230 / 2503.333 581 / 581 Sodium Chlorid e 0.9% 1000ML 1, 878.333 / 1833.333 955 / 1833.333 581 / 581 000 ml @ 100 m ls/hr IV .Q10H FAIZA Rx#:[id number] Vancomycin HCl 1,250 mg In 275 / 550 275 / 550 Sodium Chlorid e 0.9% 250 ml @ 200 mls/hr IV Q12H FAIZA Rx#: [id number] Output: Urine 400 / 3300 900 / 3300 Other: # Unmeasured Voi ds 1 Weight 89.6 kg Weight Measureme nt Method Standing Scale Constitutional: WD/WN, vitals as above Musculoskeletal: Examination left middle finger again showing small amount of purulent drainage from the incision along A1 mary ann, packing has been removed. Streaking erythema has resolved. Compartments are soft. Finger significantly swollen with desquamation of the skin. Results & Data Vital Signs (Past 12 Hours) Vital Signs Temp Pulse Resp BP Pulse Ox O2 Del Method 05/07/23 06:44 36.5 C 68 18 150/97 H 100 Room Air Laboratory Results Laboratory Results WBC 9.34 K/ul (4.8-10.8) 05/06/23 01:44 RBC 4.03 M/uL (4.70-6.10) L 05/06/23 01:44 Hgb 12.3 g/dl (14.0-18.0) L 05/06/23 01:44 Hct 36.3 % (42.0-52.0) L 05/06/23 01:44 MCV 90.1 fL (80.0-100.0) 05/06/23 01:44 MCH 30.5 pg (25.0-34.0) 05/06/23 01:44 MCHC 33.9 g/dL (32.0-36.0) 05/06/23 01:44 RDW Std Deviation 43.8 fL (36.4-46.3) 05/06/23 01:44 RDW Coeff of Anju 13.2 % (11.5-14.5) 05/06/23 01:44 Plt Count 295 K/uL (130-400) 05/06/23 01:44 MPV 9.7 fL (9.4-12.4) 05/06/23 01:44 Immature Gran % (Auto) 0.5 % 05/06/23 01:44 Neut % (Auto) 69.0 % 05/06/23 01:44 Lymph % (Auto) 22.9 % 05/06/23 01:44 [place] % (Auto) 5.4 % 05/06/23 01:44 Eos % (Auto) 1.9 % 05/06/23 01:44 Baso % (Auto) 0.3 % 05/06/23 01:44 Neut # (Auto) 6.44 K/uL (1.40-6.50) 05/06/23 01:44 Lymph # (Auto) 2.14 K/uL (1.2-3.4) 05/06/23 01:44 [place] # (Auto) 0.50 K/uL (0.11-0.59) 05/06/23 01:44 Eos # (Auto) 0.18 K/uL (0-0.50) 05/06/23 01:44 Baso # (Auto) 0.03 K/uL (0-0.2) 05/06/23 01:44 Immature Gran # (Auto) 0.05 K/uL (0.01-0.20) 05/06/23 01:44 Sodium 138 mmol/L (136-145) 05/06/23 01:44 Potassium 4.0 mmol/L (3.5-5.1) 05/06/23 01:44 Chloride 103 mmol/L (98-107) 05/06/23 01:44 Carbon Dioxide 29 mmol/L (21-32) 05/06/23 01:44 Anion Gap 6 (3-11) 05/06/23 01:44 BUN 10 mg/dl (6-23) 05/06/23 01:44 Creatinine 1.02 mg/dl (0.6-1.4) 05/06/23 01:44 Est Cr Clr Drug Dosing 99.5 ml/min 05/06/23 01:44 Est GFR ( Amer) 103.9 ml/min 05/06/23 01:44 Est GFR (Non-Af Amer) 89.6 ml/min 05/06/23 01:44 BUN/Creatinine Ratio 9.8 (10-20) L 05/06/23 01:44 Glucose 126 mg/dl (70-99(Fasting)) H 05/06/23 01:44 Lactate 1.0 mmol/L (0.4-2.0) 05/06/23 04:03 Calcium 8.6 mg/dl (8.6-10.3) 05/06/23 01:44 Magnesium 1.7 mg/dl (1.7-2.4) 05/06/23 01:44 Iron 42 mcg/dl (35-175) 05/07/23 11:38 TIBC 232 mcg/dl (250-450) L 05/07/23 11:38 Unsaturated IBC 190 mcg/dl (155-355) 05/07/23 11:38 Transferrin % Sat 18 % (20-50) L 05/07/23 11:38 Total Bilirubin 0.2 mg/dl (0.2-1.0) 05/06/23 01:44 Direct Bilirubin 0.0 mg/dl (0-0.2) 05/06/23 01:44 AST 24 U/L (13-39) 05/06/23 01:44 ALT 27 U/L (7-52) 05/06/23 01:44 Alkaline Phosphatase 81 U/L (34-104) 05/06/23 01:44 Troponin I High Sens 4.0 pg/ml (0-20) 05/06/23 01:44 Total Protein 6.6 gm/dl (6.0-8.3) 05/06/23 01:44 Albumin 3.4 gm/dl (3.4-5.0) 05/06/23 01:44 Procalcitonin 0.06 ng/ml (0-0.5) 05/06/23 01:44 Urine Color Yellow 05/06/23 01:25 Urine Appearance Clear (Clear) 05/06/23 01:25 Urine pH 7.0 (4.5-7.5) 05/06/23 01:25 Ur Specific [place] 1.010 (1.000-1.030) 05/06/23 01:25 Urine Protein Negative (Negative) 05/06/23 01:25 Urine Glucose (UA) Negative (Negative) 05/06/23 01:25 Urine Ketones Negative (Negative) 05/06/23 01:25 Urine Blood Negative (Negative) 05/06/23 01:25 Urine Nitrite Negative (Negative) 05/06/23 01:25 Urine Bilirubin Negative (Negative) 05/06/23 01:25 Urine Urobilinogen Negative (Negative) 05/06/23 01:25 Ur Leukocyte Esterase Negative (Negative) 05/06/23 01:25 Impressions Chest X-Ray 05/06/23 01:15 XR chest 1V portable CLINICAL HISTORY: Sepsis TECHNIQUE: Single frontal radiograph of the chest was obtained. Comparison: None available at the time of this dictation. FINDINGS: No lines and tubes are seen. The cardiomediastinal silhouette is normal. The lungs are clear. No evidence of pleural effusion or pneumothorax. IMPRESSION: No acute chest disease. ACT 112: Negative or not required by law. Electronically signed by: Rommel Ferro M.D. 05/06/2023 6:[address] 05/06/23 02:57 Exam(s): CT EXTREMITY LEFT UPPER With Contrast IV Amt: 93 ml optiray 350 EXAM: CT Left Upper Extremity With Intravenous Contrast CLINICAL HISTORY: Reason for exam: eval for gas/abscess. TECHNIQUE: Axial computed tomography images of the left upper extremity with intravenous contrast. Automated exposure control was utilized for the study. A dose lowering technique was utilized adhering to the principles of ALARA. CONTRAST: Patient received 93 ml optiray 350 of IV contrast COMPARISON: No relevant prior studies available. FINDINGS: Bones/joints: The osseous structures appear intact and normally aligned. No acute fracture or dislocation is seen. No elbow joint effusion is identified. Soft tissues: Mild subcutaneous edema involving the extensor surface of the proximal to mid forearm consistent with cellulitis or contusion. No subcutaneous emphysema, abscess, or foreign body is identified. IMPRESSION: Mild subcutaneous edema involving the extensor surface of the proximal to mid forearm consistent with cellulitis or contusion. No subcutaneous emphysema, abscess, or foreign body is identified. Electronically signed by: Timo Abebe MD 05/06/23 04:23 AM
[2023-05-07 12:23] LABS: Creatinine Clr Calc Pharmacy 104.6 ml/min; Est GFR (African American) 110.4 ml/min; Est GFR (Non-African American) 95.2 ml/min
[2023-05-07 12:41] LABS: Ferritin 227.1 ng/ml (8-388)
[2023-05-07 12:50] LABS: Folate (Folic Acid),Ser orPlas > 22.30 ng/ml (>5.38)
[2023-05-07 12:51] LABS: Vitamin B12 763 pg/ml (180-914)
[2023-05-07 12:59] LABS: Basophils # (auto) 0.05 K/uL (0-0.2); Basophils % (auto) 0.7 %; Eosinophils # (auto) 0.22 K/uL (0-0.50); Hematocrit (blood only) 39.3 % (42.0-52.0); Hemoglobin 13.2 g/dl (14.0-18.0); Immature Granulocytes # (auto) 0.05 K/uL (0.01-0.20); Immature Granulocytes % (auto) 0.7 %; Lymphocytes % (auto) 38.4 %; Mean Corpuscular Hemoglobin 29.8 pg (25.0-34.0); Mean Corpuscular Hgb Conc 33.6 g/dL (32.0-36.0); Mean Corpuscular Volume 88.7 fL (80.0-100.0); Mean Platelet Volume 9.9 fL (9.4-12.4); Monocytes # (auto) 0.36 K/uL (0.11-0.59); Monocytes % (auto) 4.9 %; Neutrophils # (auto) 3.82 K/uL (1.40-6.50); Neutrophils % (auto) 52.3 %; Platelet Count 318 K/uL (130-400); RDW Coefficient of Variation 13.2 % (11.5-14.5); RDW Standard Deviation 43.3 fL (36.4-46.3); Red Blood Count 4.43 M/uL (4.70-6.10)
[2023-05-07] MEDS ORDERED: VANCOMYCIN LEVEL ONE (13:30)
[2023-05-07] MEDS: SENNA 8.6 MG TAB PO SCH (20:16)
[2023-05-07] MEDS: HYDROmorphone INJ 0.5 MG/0.5 ML SYR IV PRN (20:16)
[2023-05-08] MEDS: oxyCODONE HCL IR 5 MG TAB (IMMEDIATE RELEASE) PO PRN ×2 (02:18→13:40)
[2023-05-08] MEDS: VANCOMYCIN HCL 1,250 MG in SODIUM CHLORIDE 0.9% 250 ML IV SCH (02:18)
[2023-05-08] MEDS: HYDROmorphone INJ 0.5 MG/0.5 ML SYR IV PRN ×2 (03:52→07:30)
[2023-05-08] MEDS: DOCUSATE SODIUM 100 MG CAP PO SCH (07:11)
--- NOTE | 2023-05-08 08:20 | Hospitalist Progress Note ---
Date of Service May 08, 2023 Assessment & Plan (1) Suppurative tenosynovitis of flexor tendon of left hand: Plan: POD#5 s/p 4 s/p left middle finger irrigation and debridement of septic flexor tenosynovitis. Cx w/ MRSA, Group A beta hemolytic strep (sensitive to Bactrim) On Vancomycin IV inpatient (got dose Zosyn on admission) Wound care and post-operative management per Orthopedic service. Would rec transition to Bactrim on discharge to complete course on 05/15 (total of 10 days of Abx, could continue dosing outpatient for longer course if deemed necessary). Would also consider adding Keflex PO given the Group A beta strep for dual coverage. Will message orthopedics about dual coverage at d/c WBC wnl on most recent check. Blood cx NGTD x 48 hours, remaining afebrile. Patient hopeful for d/c today. Hospitalist service will sign off at this time. Please call with any questions/concerns (2) Methamphetamine use: Plan: History of, recent elopement from hospital with use at home. Recommend oral antibiotics on discharge to promote compliance over IV and given concern for indwelling line with Hx substance use disorder. (3) Alcohol use disorder: Plan: History of, vitals have been normal and no evidence of acute withdrawal this admission to date. No symptoms of withdrawal reported by patient. (4) Anemia: Plan: Baseline Hgb unknown however was 13.9 on 05/03, most recently 12.3. Iron panel, B12 and folate levels ordered and reviewed, normal. no bleeding reported outpt f/u Plan Discussed w/ ortho PA this morning about concerns for IV abx at discharge, can utilize Bactrim (and also adding Keflex for dual coverage) given cx/sensitivites and hx IVDU. Blood cultures remain NGTD Hospitalist service will sign off at this time. Please call with any questions/concerns. Admission and Anticipated Discharge Date Admission Date: May 06, 2023 Supervising Physician Co-Signing Physician Notes The patient was not seen by me. The chart was reviewed. Case discussed with ZHANG Emmanuel. Agree with assessment and plan Subjective Eval this morning around 945, just returned from smoking cigarette outside. Pain controlled, no fever/chills, chest pain/shortness of breath. discussed possible dc on Bactrim given blood cultures NGTD after 48 hours and Cx from finger w/ MRSA/group A beta strep. Improvement in mobility. 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 Discussed will message orthopedics about disposition and about potentially giving him a letter for his PO stating he was hospitalized this past week. Questions/concerns addressed at this time. Physical Exam Constitutional: WD/WN, vitals as above Neck: trachea midline, mmm Respiratory: normal respiratory effort, lungs clear to auscultation Cardiovascular: RRR, no murmur, no edema Gastrointestinal (Abdomen): normal bowel sounds, soft, nontender, no hepat osplenomegaly Musculoskeletal: LEFT HAND -- 3rd digit w/ swelling/slight erythema/blistering of skin, dressing c/d/i (did not remove today), pulses palpable no streaking Skin: perfused, see L hand under MSK exam Psychiatric: A+Ox3, euthymic affect Results & Data Results & Data Vital Signs (Past 12 Hours) Vital Signs Temp Pulse Resp BP Pulse Ox O2 Del Method 05/08/23 07:22 37 C 82 18 124/83 97 Room Air Laboratory Results 05/08/23 05/07/23 05/07/23 Range/Units 08:02 19:00 11:43 WBC 7.30 (4.8-10.8) K/ul RBC 4.43 L (4.70-6.10) M/uL Hgb 13.2 L (14.0-18.0) g/dl Hct 39.3 L (42.0-52.0) % MCV 88.7 (80.0-100.0) fL MCH 29.8 (25.0-34.0) pg MCHC 33.6 (32.0-36.0) g/dL RDW Std Deviation 43.3 (36.4-46.3) fL RDW Coeff of Anju 13.2 (11.5-14.5) % Plt Count 318 (130-400) K/uL MPV 9.9 (9.4-12.4) fL Immature Gran % (Auto) 0.7 % Neut % (Auto) 52.3 % Lymph % (Auto) 38.4 % [place] % (Auto) 4.9 % Eos % (Auto) 3.0 % Baso % (Auto) 0.7 % Neut # (Auto) 3.82 (1.40-6.50) K/uL Lymph # (Auto) 2.80 (1.2-3.4) K/uL [place] # (Auto) 0.36 (0.11-0.59) K/uL Eos # (Auto) 0.22 (0-0.50) K/uL Baso # (Auto) 0.05 (0-0.2) K/uL Immature Gran # (Auto) 0.05 (0.01-0.20) K/uL Creatinine 0.93 (0.6-1.4) mg/dl Est Cr Clr Drug Dosing 109.1 ml/min Est GFR ( Amer) 116.1 ml/min Est GFR (Non-Af Amer) 100.2 ml/min Iron (35-175) mcg/dl TIBC (250-450) mcg/dl Unsaturated IBC (155-355) mcg/dl Transferrin % Sat (20-50) % Ferritin (8-388) ng/ml Vitamin B12 (180-914) pg/ml Folate (>5.38) ng/ml Ur Butalbital Confirm Pending Urine Opiates Screen Pending U Codeine Confrm GC/MS Pending Ur Morphine (GC/MS) Pending Ur Hydrocodone (GC/MS) Pending U Norhydrocodone Conf Pending Ur Oxycodone Screen Pending U Noroxycodone Confirm Pending Ur Oxycodone GC/MS Pending U Oxymorphone GC/MS Pending EDDP Confirm Pending Ur Methadone, Qual Pending Ur Methadone Pending Ur Hydromorphone (GC/MS) Pending Urine Barbiturates Pending Ur Phencyclidine Scrn Pending Urine PCP Confirm Pending Ur Amphetamines Screen Pending U Amphetamines Confirm Pending Methamphetamine GC/MS Pending Ur Amobarbital GC/MS Pending U Pentobarbital GC/MS Pending U Phenobarbital GC/MS Pending U Secobarbital GC/MS Pending U [id number] GC/MS Pending U Benzodiazepines Scrn Pending U 7-Aminoclonazepam Screen Pending Ur Nordiazepam GC/MS Pending U [place]-ethylfluraz GC/MS Pending U Lorazepam Cnf GC/MS Pending U Oxazepam Confm GC/MS Pending Ur Temazepam Cnf GC/MS Pending U a-Hydroxytriaz GC/MS Pending U [id number] Pending Urine Cocaine Pending U Cocaine Metab Confirm Pending Tetrahydrocannabinol Pending U Marijuana (THC) Screen Pending Drug Screen Comment Pending Reference Lab Pending 05/07/23 05/07/23 05/07/23 Range/Units 11:38 11:38 11:38 WBC (4.8-10.8) K/ul RBC (4.70-6.10) M/uL Hgb (14.0-18.0) g/dl Hct (42.0-52.0) % MCV (80.0-100.0) fL MCH (25.0-34.0) pg MCHC (32.0-36.0) g/dL RDW Std Deviation (36.4-46.3) fL RDW Coeff of Anju (11.5-14.5) % Plt Count (130-400) K/uL MPV (9.4-12.4) fL Immature Gran % (Auto) % Neut % (Auto) % Lymph % (Auto) % [place] % (Auto) % Eos % (Auto) % Baso % (Auto) % Neut # (Auto) (1.40-6.50) K/uL Lymph # (Auto) (1.2-3.4) K/uL [place] # (Auto) (0.11-0.59) K/uL Eos # (Auto) (0-0.50) K/uL Baso # (Auto) (0-0.2) K/uL Immature Gran # (Auto) (0.01-0.20) K/uL Creatinine 0.97 (0.6-1.4) mg/dl Est Cr Clr Drug Dosing 104.6 ml/min Est GFR ( Amer) 110.4 ml/min Est GFR (Non-Af Amer) 95.2 ml/min Iron 42 (35-175) mcg/dl TIBC 232 L (250-450) mcg/dl Unsaturated IBC 190 (155-355) mcg/dl Transferrin % Sat 18 L (20-50) % Ferritin 227.1 (8-388) ng/ml Vitamin B12 763 (180-914) pg/ml Folate > 22.30 (>5.38) ng/ml Ur Butalbital Confirm Urine Opiates Screen U Codeine Confrm GC/MS Ur Morphine (GC/MS) Ur Hydrocodone (GC/MS) U Norhydrocodone Conf Ur Oxycodone Screen U Noroxycodone Confirm Ur Oxycodone GC/MS U Oxymorphone GC/MS EDDP Confirm Ur Methadone, Qual Ur Methadone Ur Hydromorphone (GC/MS) Urine Barbiturates Ur Phencyclidine Scrn Urine PCP Confirm Ur Amphetamines Screen U Amphetamines Confirm Methamphetamine GC/MS Ur Amobarbital GC/MS U Pentobarbital GC/MS U Phenobarbital GC/MS U Secobarbital GC/MS U [id number] GC/MS U Benzodiazepines Scrn U 7-Aminoclonazepam Screen Ur Nordiazepam GC/MS U [place]-ethylfluraz GC/MS U Lorazepam Cnf GC/MS U Oxazepam Confm GC/MS Ur Temazepam Cnf GC/MS U a-Hydroxytriaz GC/MS U [id number] Urine Cocaine U Cocaine Metab Confirm Tetrahydrocannabinol U Marijuana (THC) Screen Drug Screen Comment Reference Lab PG Care Time/CCT Total # of Minutes Spent Total Time Spent with Patient: Total time spent is greater than 50% in coordination of care (as documented) at patient's floor/unit and/or counseling patient: Coding Level of Care Code 43521 SUB INP/OBS CARE 2/35MIN Diagnoses Suppurative tenosynovitis of flexor tendon of left hand M65.142 Methamphetamine use F15.10 Alcohol use disorder F10.90 Anemia D64.9
[2023-05-08] MEDS: MULTIVITAMIN TAB PO SCH (09:13)
[2023-05-08 09:21] LABS: Creatinine Clr Calc Pharmacy 109.1 ml/min; Est GFR (African American) 116.1 ml/min; Est GFR (Non-African American) 100.2 ml/min
--- NOTE | 2023-05-08 13:27 | Orthopedic Progress Note ---
Date of Service May 08, 2023 Assessment & Plan (1) Suppurative tenosynovitis of flexor tendon of left hand: Plan: Status post irrigation and debridement of the third left finger for tenosynovitis. patient continues to slowly improve on IV antibiotics. In discussion today with Luda Maharaj PA-C, hospitalist service is recommending Bactrim and Keflex p.o. for when the patient is being discharged. discussed with patient that he needs to continue daily dressing changes and watch for signs of worsening infection which she is familiar with. Patient will be discharged home with the above noted antibiotics and to follow-up with Dr. De Los Santos in 5 days. Admission and Anticipated Discharge Date Admission Date: May 06, 2023 Subjective Patient is lying in bed awake and alert. No complaints today. States that his finger is feeling a little bit better today. Patient is hoping to be discharged today. Physical Exam Physical Exam: Dressing removed from the left third finger. Continues to have some swelling and a little bit of maceration around the base of the proximal phalanx. No overt drainage or purulence noted. Capillary refill is less than 2 seconds. States that sensation in the tip of the finger is good today. Results & Data Vital Signs (Past 12 Hours) Vital Signs Temp Pulse Resp BP Pulse Ox O2 Del Method 05/08/23 07:22 37 C 82 18 124/83 97 Room Air
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
[2023-05-10 14:22] LABS: 7-Aminoclonazepam DNR ng/mL (<25); Alpha-Hydroxyalprazolam DNR ng/mL (<25); Alphahydroxymidazolam DNR ng/mL (<50); Alphahydroxytriazolam DNR ng/mL (<50); Amobarbital DNR ng/mL (<100); Amphetamines, Ur POSITIVE ng/mL (<500); Amphetemines Ur GC/MS 1269 ng/mL (<250); Barbiturates, Urine NEGATIVE ng/mL (<300); Benzodiazepines,Ur NEGATIVE ng/mL (<100); Butalbital DNR ng/mL (<100); Cocaine, Urine NEGATIVE ng/mL (<150); Cocaine,Ur GC/MS DNR ng/mL (<100); Codeine NEGATIVE ng/mL (<50); Confirmatory Facility DNR; EDDP DNR ng/mL (<100); Hydrocodone NEGATIVE ng/mL (<50); Hydromorphone NEGATIVE ng/mL (<50); Hydroxyethylflurazepam DNR ng/mL (<50); Lorazepam DNR ng/mL (<50); Methadone, Ur GC/MS NEGATIVE ng/mL (<100); Methadone, Urine DNR ng/mL (<100); Methamphetamine 4655 ng/mL (<250); Morphine NEGATIVE ng/mL (<50); Norhydrocodone NEGATIVE ng/mL (<50); Noroxycodone DNR ng/mL (<50); Opiates, Urine NEGATIVE CONFIRMED ng/mL (<100); Oxycodone,Ur Screen NEGATIVE ng/mL (<100); Pentobarbital DNR ng/mL (<100); Phencyclidine, Ur NEGATIVE ng/mL (<25); Phencyclidine,Ur GC/MS DNR ng/mL (<25); Secobarbital DNR ng/mL (<100); THC20, Qual, Urine NEGATIVE ng/mL (<20); Temazepam DNR ng/mL (<50); Tetrahydrocannabinol DNR ng/mL (<5)
--- NOTE | 2023-05-27 10:12 | Coding Query ---
A supporting diagnosis is required for the test/procedure performed on this patient in order for us to be reimbursed by the patient's insurance. Please provide a supporting diagnosis for the following test/procedure listed below next to the test name along with your signature. *If there is no additional diagnosis for this patient that would support the following test/procedure please document that below next to the test/procedure. Test(s)/Procedure(s) that require a supporting diagnosis: * 54721 B12 VITAMIN LEVEL DIAGNOSIS: normocytic anemia, evaluating for possible causes * 92496 FOLATE LEVEL DIAGNOSIS: normocytic anemia, evaluating for possible causes DATE OF SERVICE: 05/07/23 Provider Signature: ____Elin Sandoval DO Date: 05/27/2023 Thank you Joaquín Stewart [facility] Information Management Once completed, please kindly fax back to [phone] For questions please call [phone] [facility]ITAL[facility]itt[facility]
--- NOTE | 2023-05-27 10:14 | Coding Query ---
A supporting diagnosis is required for the test/procedure performed on this patient in order for us to be reimbursed by the patient's insurance. Please provide a supporting diagnosis for the following test/procedure listed below next to the test name along with your signature. *If there is no additional diagnosis for this patient that would support the following test/procedure please document that below next to the test/procedure. Test(s)/Procedure(s) that require a supporting diagnosis: history of drug use * 72525 DRUG SCREEN URINE DIAGNOSIS: DATE OF SERVICE: 05/07/23 Provider Signature: Date: Thank you Joaquín Stewart [facility] Information Management Once completed, please kindly fax back to [phone] For questions please call [phone] [facility]
== END 2023-05-08 14:53 | disposition home or self-care (01) | DRG 558 ==
LOC: ED 00:39 → INTOOBSV 07:31 → EDINP 07:31 → 3W 17:34